=== PATIENT | female | born 1930 | race Caucasian/White ===

== ENCOUNTER → 2017-06-05 | Outpatient (CLI) | payer OTHER | LOC: FIMAGING 14:03 | PROVIDERS: ATTEND Physician Assistant | DX: N64.3 Galactorrhea not associated with childbirth (principal); R23.4 Changes in skin texture | CPT/HCPCS: 76641; G0204 ==

== ENCOUNTER → 2017-06-16 | Outpatient (CLI) | payer OTHER, BC ==
[~2017-06-16] MED LIST: BUPIVACAINE 0.5% 10 ML SDV ONE; LIDO/EPI 1% **Not for Epidural 20 ML MDV ONE; LIDOCAINE 1% 300 MG/30 ML SDV ONE
== END ==
LOC: FIMAGING 07:12
PROVIDERS: ATTEND Physician Assistant
DX: C50.912 Malignant neoplasm of unspecified site of left female breast (principal); Z17.0 Estrogen receptor positive status [ER+]
CPT/HCPCS: 19083; 88360; G0206

== ENCOUNTER → 2017-07-03 | Day surgery (SDC) | payer OTHER, BC ==
[~2017-07-03] MED LIST changes: +ACETAMINOPHEN 500 MG TAB PO PRN; -BUPIVACAINE 0.5% 10 ML SDV ONE; +BUPIVACAINE 0.5% 30 ML SDV ONE; +HYDROmorphONE/DILAUDID 1 MG/ML INJ IVP PRN; -LIDO/EPI 1% **Not for Epidural 20 ML MDV ONE; +LR 1,000 ML IV ONE; +NALOXONE HCL 0.4 MG/ML INJ IVP PRN; +ONDANSETRON 4 MG/2 ML VIAL IVP PRN; +OXYCODONE/APAP 5/325 TAB PO PRN; +PROPOFOL 200 MG/20 ML VIAL ONE; +ceFAZolin 2 GM/DEXTROSE 100 ML IV ONE; +fentaNYL 100 MCG/2 ML INJ IVP PRN; +fentaNYL 100 MCG/2 ML INJ ONE
[2017-07-03 10:16] VITALS: PULSE 54
--- NOTE | 2017-07-03 11:32 | PDANEPAE ---
ANE History of Present Illness 87 yo F here for L breast lumpectomy ANE Past Medical History - Cardiovascular History Hx Hypertension: Yes Hx Arrhythmias: No Hx Chest Pain: No Hx Coronary Artery / Peripheral Vascular Disease: No Hx CHF / Valvular Disease: No Hx Palpitations: No - Pulmonary History Hx COPD: No Hx Asthma/Reactive Airway Disease: No Hx Recent Upper Respiratory Infection: No Hx Oxygen in Use at Home: No Hx Sleep Apnea: No Sleep Apnea Screening Result - Last Documented: Negative - Neurologic History Hx Cerebrovascular Accident: No Hx Seizures: No Hx Dementia: Yes Neurologic History Comment: Pt has poor short term memory. 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 - Congenital Disorder History Hx Congenital Disorders: No - GI History Hx Gastrointestinal Disorders: Yes Gastrointestinal History Comment: LACTOSE INTOLERANCE, GETS DIAHHREA - Other Health History Other Health History: MACULA DEGENERATION - Chronic Pain History Chronic Pain: No - Surgical History Prior Surgeries: CATARACT BILAT ANE Review of Systems Review of Systems: - Exercise capacity METS (RN): 5 METS ANE Patient History - Allergies Allergies/Adverse Reactions: Sulfa (Sulfonamide Antibiotics) Allergy (Verified 06/06/17 09:46) - Home Medications Home medications: home medication list seen and reviewed Home Medications: Herbal Drugs 07/03/17 [Last Taken 07/02/17] Levothyroxine [Synthroid 25 mcg (*)] 25 mcg PO 07/03/17 [Last Taken 07/03/17] Lisinopril 07/03/17 [Last Taken 07/03/17 09:00] - NPO status NPO Status: no food or drink >8 hours NPO Since - Liquids (Date): 07/03/17 NPO Since - Liquids (Time): 09:00 NPO Since - Solids (Date): 07/02/17 NPO Since - Solids (Time): 20:00 - Anes Hx Anes Hx: no prior problems - Smoking Hx Smoking Status: Never smoked - Alcohol Use Alcohol Use: None - Family Anes Hx Family Anes Hx: neg - N/A Family Hx Anesthesia Complications: NONE ANE Labs/Vital Signs - Vital Signs Blood Pressure: 169/94 Heart Rate: 54 Respiratory Rate: 94 Height: 157.48 cm Weight: 68.039 kg ANE Physical Exam - Airway Neck exam: FROM Mallampati Score: Class 2 Mouth exam: normal dental/mouth exam Mouth image: 1 - missing - Pulmonary Pulmonary: no respiratory distress, clear to auscultation - Cardiovascular Cardiovascular: regular rate and rhythym, no murmur, rub, or gallop - ASA Status ASA Status: III ANE Anesthesia Plan Anesthesia Plan: GA w LMA
--- NOTE | 2017-07-03 11:52 | PDHPUP ---
History & Physical Update H&P update statement: This history and physical update is based on an assessment of the patient which was completed after admission or registration (within 24 hours), but prior to the surgery/procedure. H&P update: H&P reviewed & patient examined, no change in patient's condition since H&P completed
--- NOTE | 2017-07-03 13:00 | POSTOPPROG ---
Post Op Note Date of Operation: 07/03/17 Surgeon: Lexy Quiroga Anesthesiologist: donna Anesthesia: GET(General Endotracheal) Pre-op Diagnosis: left breast cancer Post-op Diagnosis: same Indication: 87 yo with left breast cancer and crusting lesion on nipple Procedure: left lumpectomy, left sln, left excision of nipple Findings: neg sln Inf/Abcess present in the surg proc area at time of surgery?: No EBL: Minimal Specimen(s): nipple, lump, margins, sln
[2017-07-03 13:33] VITALS: RESP 10; TEMP 97.9
[2017-07-03 14:21] VITALS: BP 189/81; O2SAT 96
== END | disposition home or self-care (01) ==
LOC: FSGY 09:47
PROVIDERS: ATTEND Surgery
PROC: 0HBX0ZZ Excision of Left Nipple, Open Approach (ICD-10-PCS; principal; 2017-07-03 12:00)
PROC: 07B60ZX Excision of Left Axillary Lymphatic, Open Approach, Diagnostic (ICD-10-PCS; principal; 2017-07-03 12:00)
PROC: 0HBU0ZZ Excision of Left Breast, Open Approach (ICD-10-PCS; principal; 2017-07-03 12:00)
DX: C50.412 Malignant neoplasm of upper-outer quadrant of left female breast (principal); I10 Essential (primary) hypertension; E03.9 Hypothyroidism, unspecified
CPT/HCPCS: 19302; 78195; A9520; J0690; J2704; J3010

== ENCOUNTER → 2017-11-10 | Outpatient (CLI) | payer OTHER, BC | LOC: FIMAGING 11:56 | PROVIDERS: ATTEND Surgery | DX: Z08 Encounter for follow-up examination after completed treatment for malignant neoplasm (principal); Z85.3 Personal history of malignant neoplasm of breast ==